=== PATIENT | male | born 1975 | race Caucasian/White ===

== ENCOUNTER → 2024-10-19 | Day surgery (SDC) | payer BC ==
[2024-10-16 09:57] VITALS: BMI 29.2
[~2024-10-19] MED LIST: MIDAZOLAM HCL 2 MG/2 ML SINGLE DOSE VIAL ONE
[2024-10-19 12:47] VITALS: RESP 18
[2024-10-19 15:18] VITALS: TEMP 97.7
[2024-10-19 15:39] VITALS: BP 123/74; PULSE 63
== END | disposition home or self-care (01) ==
LOC: JASU-SURG 05:30
PROVIDERS: ATTEND Urology
PROC: 0TF4XZZ Fragmentation in Left Kidney Pelvis, External Approach (ICD-10-PCS; principal; 2024-10-19 14:30)
DX: N20.0 Calculus of kidney (principal)